=== PATIENT | female | born 1990 | race African-American/Black ===

== ENCOUNTER 2017-12-17 01:28 | Emergency (ER) | payer BC ==
[~2017-12-17] VITALS: Ht 162.6 cm; Wt 104.3 kg
[2017-12-17 03:30] LABS: RBC 4.66 mil/uL (4.20-5.00)
[2017-12-17 03:32] LABS: ABSOLUTE NEUTROPHILS 4.7 thou/uL (1.4-8.2); BASOPHILS 0.9 % (0.0-2.0); EOSINOPHILS 1.8 % (0.0-3.0); HEMATOCRIT 37.1 % (37.0-47.0); LYMPHOCYTES 32.6 % (24.0-44.0); MCH 25.7 pg (26.0-34.0); MCHC 32.4 g/dL (28.0-37.0); MCV 79.5 fL (80.0-100.0); MONOCYTES 6.2 % (1.0-8.0); PLATELET COUNT 336 thou/uL (150-400); POLYS 58.5 % (36.0-66.0); RDW 15.3 % (10.5-14.5)
== END 2017-12-17 04:03 | disposition home or self-care (01) ==
LOC: ER 01:28
PROVIDERS: Emergency Medicine
DX: N93.8 Other specified abnormal uterine and vaginal bleeding (principal); R10.30 Lower abdominal pain, unspecified; Z88.0 Allergy status to penicillin